=== PATIENT | female | born 1990 | race Caucasian/White ===

== ENCOUNTER 2018-08-24 10:25 | Inpatient (IN) ==
[2018-08-24] MEDS ORDERED: ceFAZolin 2 GM Premix Inj 2 GM/50 ML PIGGYBACK IV.SIG PRN (11:39)
[2018-08-24] MEDS ORDERED: Citric Acid/Sodium Citrate Liq 30 ML UDC PO SCH (11:45)
[2018-08-24 11:47] LABS: Baso # (Auto) 0.1 th/mm3 (0.0-0.2); Baso % (Auto) 0.6 % (0.0-2.0); Eos % (Auto) 0.4 % (0.0-4.0); Hematocrit 34.9 % (35.0-46.0); Hemoglobin 11.5 gm/dL (11.6-15.3); Lymph # (Auto) 2.1 th/mm3 (1.0-4.8); Lymph % (Auto) 21.8 % (9.0-44.0); Mean Corpuscular HGB Conc 33.1 % (32.0-36.0); Mean Corpuscular Hemoglobin 26.9 pg (27.0-34.0); Mean Corpuscular Volume 81.1 fL (80.0-100.0); Mean Platelet Volume 8.7 fL (7.0-11.0); Mono # (Auto) 0.4 th/mm3 (0.0-0.9); Mono % (Auto) 3.9 % (0.0-8.0); Neut # (Auto) 7.2 th/mm3 (1.8-7.7); Neut % (Auto) 73.3 % (16.0-70.0); Platelet Count 313 th/mm3 (150-450); Red Cell Distribution Width 14.6 % (11.6-17.2); White Blood Count 9.8 th/mm3 (4.0-11.0)
--- NOTE | 2018-08-24 11:51 | P.HPOB ---
History of Present Illness Service: obstetrics Primary Care Physician: Dagmar aNyak MD History of Present Illness: 28 yo here for CS at 41 weeks she has 8 cm fibroid at cervix that is obstruction pelvic outlet Weeks Gestation:: 41 Para: 0 : 1 - Inpatient Certification I certify that the inpatient services were ordered in accordance with Medicare regulations governing the order. This includes certification that hospital inpatient services are reasonable and necessary and in the case of services not specified as inpatient-only under 42 CFR 419.22(n), that they are appropriately provided as inpatient services in accordance to with the 2-midnight benchmark under 43 CFR 412.3(e) Estimated Total Length of Stay (Days): 3 Plans for Post Hospital Care: Home Review of Systems All other systems reviewed negative except as stated in [facility] - Medical / Surgical Hx Neg / Unobtainable Medical Problems Denied: Yes Surgical History: No Previous Surgery (seizure disorder on medication) - Medical History Medical History: Medical History (Last Updated 08/24/18 @ 11:47 by Tyrone Woodward MD) Epilepsy - Surgical History Surgical History: Surgical History (Last Updated 08/24/18 @ 11:47 by Tyrone Woodward MD) No history of previous surgery - Social History I have reviewed the patient's Social History: Yes - Tobacco History Second Hand Smoke Exposure: No Tobacco Use In Past 30 Days: No Smoking Status: Never smoker - Alcohol History How Often Do You Have a Drink Containing Alcohol: Never - Travel History History of Recent Travel: No Recent Travel in the [place] Within the Last 8 Weeks: No Recent Travel Out of the Country Within the Last 8 Weeks: No Medications and Allergies Active Medications: Active Medications Citric Acid/Sodium Citrate (Sodium Citrate/Citric Acid Liq) 30 ml PO PLAN EXAMINER [facility] Stop: 08/28/18 11:44 Cefazolin Sodium/Dextrose (Ancef 2 Gm Premix Inj) 2 gm in 50 mls @ 100 mls/hr IV.SIG PLAN EXAMINER PRN PRN Reason: PROCEDURE ANESTHESIA Stop: 08/25/18 11:38 Lactated Ringer's (Lr 1000 Ml Inj) 1,000 mls @ 2,000 mls/hr IV.SIG .Q30M ONE Stop: 08/24/18 12:08 Lactated Ringer's (Lr 1000 Ml Inj) 1,000 mls @ 150 mls/hr IV.CONT .Q6H40M [facility] Allergies Allergy/AdvReac Type Severity Reaction Status Date / Time No Known Allergies Allergy Uncoded 05/23/13 08:10 Exam Vital signs: Vital Signs 08/24/18 10:45 Pulse Rate 98 H Respiratory Rate 18 Blood Pressure 110/80 Intake & Output 08/23/18 08/24/18 08/24/18 18:59 06:59 18:59 Weight 95.254 kg - Constitutional no acute distress - Routine HEENT Exam Head: Present: normocephalic ENT: Present: mucous membranes moist - Routine Neck Exam Present: supple, full ROM - Routine Respiratory Exam Present: CTA bilaterally - Routine Cardiovascular Exam Present: RRR - Routine Abdominal Exam Present: soft, normoactive bowel sounds - Routine Exam Patient deferred: external exam External: Present: normal urethra appearance Groin: Present: inguinal hernia Perineum Description: Intact Comments: cervix is 1 cm but 8 cm fibroid is presenting and vertex above - Routine Skin Exam Present: intact - Routine Neurological Exam Present: alert, oriented X3 Results - Labs CBC & Chem 7: 08/24/18 10:50 Caprini VTE Risk Assessment Caprini VTE Risk Assessment: No/Low Risk (score <= 1) Caprini Risk Assessment Model: Point Value = 1 Point Value = 2 Point Value = 3 Point Value = 5 Age 41-60 Minor surgery BMI > 25 kg/m2 Swollen legs Varicose veins or History of unexplained or recurrent spontaneous Oral contraceptives or hormone replacement Sepsis (< 1 month) Serious lung disease, including pneumonia (< 1 month) Abnormal pulmonary function Acute myocardial infarction Congestive heart failure (< 1 month) History of inflammatory bowel disease Medical patient at bed rest Age 61-74 Arthroscopic surgery Major open surgery (> 45 min) Laparoscopic surgery (> 45 min) Malignancy Confined to bed (> 72 hours) Immobilizing plaster cast Central venous access Age >= 75 History of VTE Family history of VTE Factor V Leiden Prothrombin [id number] Lupus anticoagulant Anticardiolipin antibodies Elevated serum homocysteine Heparin-induced thrombocytopenia Other congenital or acquired thrombophilia Stroke (< 1 month) Elective arthroplasty Hip, pelvis, or leg fracture Acute spinal cord injury (< 1 month) Prophylaxis Regimen: Total Risk Factor Score Risk Level Prophylaxis Regimen 0-1 Low Early ambulation 2 Moderate Order ONE of the following: *Sequential Compression Device (SCD) *Heparin 5000 units SQ BID 3-4 Higher Order ONE of the following medications: *Heparin 5000 units SQ TID *Enoxaparin/Lovenox 40 mg SQ daily (WT < 150 kg, CrCl > 30 mL/min) *Enoxaparin/Lovenox 30 mg SQ daily (WT < 150 kg, CrCl > 10-29 mL/min) *Enoxaparin/Lovenox 30 mg SQ BID (WT < 150 kg, CrCl > 30 mL/min) AND/OR *Sequential Compression Device (SCD) 5 or more Highest Order ONE of the following medications: *Heparin 5000 units SQ TID (Preferred with Epidurals) *Enoxaparin/Lovenox 40 mg SQ daily (WT < 150 kg, CrCl > 30 mL/min) *Enoxaparin/Lovenox 30 mg SQ daily (WT < 150 kg, CrCl > 10-29 mL/min) *Enoxaparin/Lovenox 30 mg SQ BID (WT < 150 kg, CrCl > 30 mL/min) AND *Sequential Compression Device (SCD) Assessment and Plan - Diagnosis (1) 41 weeks gestation of Code(s): Z3A.41 - 41 weeks gestation of Status: Acute (2) Fibroid of cervix Code(s): D25.9 - Leiomyoma of uterus, unspecified Status: Acute (3) delivery due to maternal disorder Code(s): O99.89 - Other specified diseases and conditions complicating , childbirth and the puerperium Status: Acute (4) Seizure disorder Code(s): G40.909 - Epilepsy, unspecified, not intractable, without status epilepticus Status: Acute - Plan CS for obstruction fibroid
[2018-08-24 11:57] LABS: Bacteria,Urine Moderate /hpf; Bilirubin,Urine Negative (Negative); Clarity,Urine Clear (Clear); Color,Urine Yellow (Yellw/Straw); Glucose,Urine (UA) Negative (Negative); Leukocyte Esterase,Urine Moderate (Negative); Nitrite,Urine Negative (Negative); Squamous Epithelial Cell,Urine 2 /hpf (0-5)
[2018-08-24] MEDS ORDERED: Influenza (Quadrivalent) Vaccine 0.5 ML Syringe IM ONE (12:30)
[2018-08-24] MEDS ORDERED: Morphine Sulfate PF Inj 5 MG/10 ML Ampul ONE (15:35)
[2018-08-24] MEDS ORDERED: Naloxone Inj 0.4 MG/ML Vial IV.PUSH PRN (16:30)
[2018-08-24] MEDS ORDERED: Oxytocin 30 Units/500ml Premix 30 UNITS/500 ML BAG IV.SIG ONE (17:31)
[2018-08-24] MEDS ORDERED: Simethicone 80 MG Chew Tablet PO PRN (17:31)
--- NOTE | 2018-08-24 17:36 | P.OBDELI ---
Procedure Note - Pre Op Diagnosis (1) 41 weeks gestation of (2) Fibroid of cervix (3) delivery due to maternal disorder (4) Seizure disorder - Post Op Diagnosis (1) Fibroid of cervix (2) delivery due to maternal disorder (3) Seizure disorder Performed by: Tyrone Woodward MD Procedure: Primary Low Transverse Section, Other (Myomectomy) Indication for Delivery: malposition (obstructed outlet by 9 cm fibroid) Informed Consent Obtained: For anesthesia, For procedure Confirmed Correct: Patient, Procedure, Site, Time-out taken Anesthesia: Spinal Urinary Catheter: Inserted using sterile technique Sterile Preparation: Duraprep Position: Supine with wedge to left side - Operative Features Skin Incision: Pfannenstiel Uterine Incision: Low transverse w/knife / blunt ext Membranes Ruptured: Artificially Presentation: Occiput anterior Status of : Viable Placenta Delivered: Intact Medications: Antibiotics Estimated blood loss (mL): 600 Procedure Tolerated: Well Maternal Condition: Stable Baby Condition: Stable
[2018-08-24] MEDS ORDERED: Ketorolac Inj 30 MG/ML (IVP) Vial ONE (17:48)
--- NOTE | 2018-08-24 19:01 | MP ---
cc: Tyrone Woodward MD DATE OF OPERATION: 08/24/2018 PROCEDURE PERFORMED: Primary low transverse section, myomectomy. PREOPERATIVE DIAGNOSIS: The patient had 41 weeks obstructed outlet by 9 cm fibroid posteriorly at the cervix. POSTOPERATIVE DIAGNOSIS: The patient had 41 weeks obstructed outlet by 9 cm fibroid posteriorly at the cervix. SURGEON: Tyrone Woodward MD ANESTHESIA: Raza Valdez MD. Spinal anesthesia. COMPLICATIONS: None. FINDINGS: The patient had a live male infant in the OA presentation above the 9 cm fibroid that blocked the endocervical canal. She had 9 cm fibroid in the posterior wall of the uterus obstructing the cervical canal. ESTIMATED BLOOD LOSS: 600 mL. PROCEDURE IN DETAIL: After informed consent, the patient was taken to the operating room where she was placed under spinal anesthesia was placed in supine position with left lateral tilt. Abdomen, perineum and vagina were prepped and draped in normal sterile fashion. Garrett catheter was then placed to gravity. After adequate anesthesia was assured, a Pfannenstiel skin incision was carried sharply down through the skin to the fascia. The fascia was nicked in the midline. The incision was extended laterally using Conley scissors. Rectus muscle was in the midline. Peritoneum was entered bluntly with the finger. The incision was extended laterally using blunt traction. The uterus was noted to be midline. The fibroid was not in the anterior compartment. Bladder flap was created by dissecting the bladder off the lower uterine segment. A large vein was traversing transversely across the lower uterine segment. We went above that, but still within the thinned out lower uterine segment. We made our incision, we encountered a venous complex and entered the uterus with the blunt placement of a finger. Once we entered the uterus, clear fluid was noted. The incision was extended laterally using blunt traction. A hand was placed into the uterus. The infant's head was guided to the incision using fundal pressure, the 's head would not elevate secondary to the abnormal anatomy with the fibroid. Multiple attempts were unsuccessful, so vacuum was applied to the occiput portion, just gentle traction, and a single pull requiring less than 5 seconds of activation, pulling as we gave fundal pressure, the infant's head delivered. Vacuum was taken off. The infant's shoulders were delivered, and the infant started to cry on the mother's thighs. Once the baby was stimulated and dried for 45 seconds and was crying well, the cord was clamped and cut and the infant was handed to pediatrics in attendance. Cord blood was collected. Placenta was delivered manually. The uterus was exteriorized, wiped free from all remaining products of conception. Once the uterus was exteriorized, we noted this fibroid, which filled the supracervical area in the posterior wall a little left of center. About 40% of the fibroid came all the way through to the mucosal surface, so decision was made to incise through the endometrium because this was a much shallower route then posterior near the uterosacral ligament. The incision was made. The fibroid was shelled out without difficulty, controlling blood supply. Once the fibroid was completely removed, we noted a defect which was about 4 cm in width, which was from the mucosal surface all the way through to the serosa of the posterior wall of the uterus. This was oversewn internally and then the defect was closed at the mucosal surface. The os remained free from any area of surgery and was not obstructed. The upper uterus was also free. This was all down near the cervix and the lower uterine segment, but posteriorly. Once the fibroid was completely removed and hemostasis had been achieved, defect was closed. Uterine incision was closed with running locking stitch of chromic suture. A second imbricating layer for strength and hemostasis was placed of Vicryl suture. The venous complex had to be oversewn near the incision for good hemostasis. At this point, the posterior wall of the uterus was inspected. A hematoma was trying to form where the defect was right at the serosa. This was enforced with 3 [id number] sutures in the posterior wall of the uterus. Good closure was noted over that area to tamponade any hematoma trying to form and reinforce the musculature of the posterior wall of the uterus. At this point, that 4 cm defect was closed and imbricated over that area, which was trying to form a hematoma. Interceed was applied over that suture line and the uterus was placed back in the abdomen, it was noted to be hemostatic. A second piece of Interceed was applied over the uterine incision, low transverse type. Peritoneum was closed with Vicryl suture. The fascia was closed with Vicryl suture, and the skin was closed with subcuticular stitch. Each layer was noted to be hemostatic prior to closure and the patient tolerated the procedure well. There were no active bleeding at the end of the procedure. The patient did not have any heavy vaginal bleeding. The patient tolerated the procedure well. She was taken to recovery room in stable condition. Lap and instrument counts were reported as correct. A timeout had been taken prior to the surgery, which encompassed the low transverse section, but did not include the myomectomy which was performed with this 9 cm fibroid within the myometrium. The patient was aware that this fibroid was present. She was also aware that it may require removal, possibly even leading to hysterectomy if bleeding occurred. The patient understood the risks and understood during the surgery what we were doing. MD JAYNE Taylor/ben , 05:43 PM , 05:55 PM
[2018-08-24] MEDS ORDERED: Oxytocin 30 Units/500ml Premix 30 UNITS/500 ML BAG IV.SIG PRN (22:31)
[2018-08-24] MEDS: Ibuprofen 600 MG Tablet PO PRN (23:27)
[2018-08-25 06:00] LABS: Baso % (Auto) 0.1 % (0.0-2.0); Eos % (Auto) 0.1 % (0.0-4.0); Hematocrit 21.5 % (35.0-46.0); Lymph # (Auto) 1.5 th/mm3 (1.0-4.8); Lymph % (Auto) 12.4 % (9.0-44.0); Mean Corpuscular HGB Conc 32.3 % (32.0-36.0); Mean Corpuscular Hemoglobin 26.1 pg (27.0-34.0); Mean Corpuscular Volume 80.8 fL (80.0-100.0); Mean Platelet Volume 8.2 fL (7.0-11.0); Mono # (Auto) 0.6 th/mm3 (0.0-0.9); Mono % (Auto) 5.2 % (0.0-8.0); Neut # (Auto) 9.7 th/mm3 (1.8-7.7); Neut % (Auto) 82.2 % (16.0-70.0); Platelet Count 220 th/mm3 (150-450); Red Blood Count 2.66 mil/mm3 (4.00-5.30); Red Cell Distribution Width 14.7 % (11.6-17.2); White Blood Count 11.8 th/mm3 (4.0-11.0)
[2018-08-25 06:22] LABS: Hemoglobin 6.9 gm/dL (11.6-15.3)
[2018-08-25] MEDS: Ibuprofen 600 MG Tablet PO PRN ×3 (07:51→21:43)
--- NOTE | 2018-08-25 10:26 | P.PNOB ---
Subjective Post day: 1 Interval history: 28 yo patient here with CS and myomectomy, She is tired and sleeping. Initially had lightheadedness when she got up but is doing better after fluid bolus. Objective Vital Signs/I&O: Vital Signs 08/24/18 10:45 08/24/18 17:32 08/24/18 17:44 Temperature 98.4 F Pulse Rate 98 H 92 H 76 Respiratory Rate 18 18 18 Blood Pressure 110/80 115/56 L 08/24/18 17:45 08/24/18 18:02 08/24/18 18:12 Temperature 98.1 F Pulse Rate 74 Respiratory Rate 18 Blood Pressure 141/63 H 116/63 08/24/18 18:16 08/24/18 20:30 08/25/18 00:00 Temperature 98.3 F 98.3 F Pulse Rate 89 68 72 Respiratory Rate 18 18 18 Blood Pressure 122/58 L 119/62 102/54 L 08/25/18 04:30 08/25/18 08:12 Temperature 98.3 F 98.0 F Pulse Rate 77 79 Respiratory Rate 18 18 Blood Pressure 102/60 106/60 Intake & Output 08/24/18 08/25/18 08/25/18 18:59 06:59 18:59 Weight 94.347 kg Other: Weight On Admission 94.347 kg Result Diagrams: 08/25/18 05:39 Objective Remarks: GENERAL: Well-nourished, well-developed patient. ABDOMEN/GI: Abdomen soft, non-tender. Fundus: Firm, non-tender at umbilicus. GENITOURINARY: Light to moderate bleeding. EXTREMITIES: No cyanosis or edema, non-tender, without signs of DVT. Medications and IVs: Active Medications Diphenhydramine HCl (Benadryl) 50 mg PO Q6H PRN PRN Reason: MILD TO MODERATE ITCHING Stop: 08/25/18 16:29 Diphenhydramine HCl (Benadryl Inj) 25 mg IV.PUSH Q6H PRN PRN Reason: MILD TO MODERATE ITCHING Stop: 08/25/18 16:29 Diphtheria/Pertussis/Tetanus Vacc (Boostrix Vaccine Inj) 0.5 ml IM .ONCE ONE Stop: 08/25/18 16:01 Lactated Ringer's (Lr 1000 Ml Inj) 1,000 mls @ 100 mls/hr IV.CONT .Q10H ANTELMO Stop: 08/25/18 18:30 Last Admin: 08/24/18 22:00 Dose: 100 mls/hr Oxytocin (Pitocin 30 Units/Ns 500 Ml Premix) 30 units in 500 mls @ 100 mls/hr IV.SIG PRN PRN PRN Reason: Heavy bleeding Stop: 08/25/18 22:30 Ibuprofen (Motrin) 600 mg PO Q6HR PRN PRN Reason: cramping Last Admin: 08/25/18 07:51 Dose: 600 mg Ketorolac Tromethamine (Toradol Inj) 30 mg IM Q6H PRN PRN Reason: SEE LABEL COMMENTS Last Admin: 08/24/18 17:51 Dose: 30 mg Measles/Mumps/Rubella Vaccine Live (M-M-R Ii Vaccine Inj) 0.5 ml SQ .ONCE ONE Stop: 08/25/18 16:01 Miscellaneous Information ([facility] [place] [facility] Information) 1 each OTHER UNSCH PRN PRN Reason: SEE LABEL COMMENTS Stop: 08/25/18 16:29 Miscellaneous Information ([facility] [place] [facility] Information) 1 each OTHER UNSCH PRN PRN Reason: SEE LABEL COMMENTS Stop: 08/25/18 16:29 Naloxone HCl (Narcan Inj) 0.4 mg IV.PUSH UNSCH PRN PRN Reason: SEE LABEL COMMENTS Stop: 08/25/18 16:29 Ondansetron HCl (Zofran Inj) 4 mg IV.PUSH Q6H PRN PRN Reason: NAUSEA OR VOMITING Oxycodone/Acetaminophen (Percocet 5/325 Mg) 1 tab PO Q4H PRN PRN Reason: PAIN SCALE 3 TO 5 Last Admin: 08/25/18 07:52 Dose: 1 tab Oxycodone/Acetaminophen (Percocet 5/325 Mg) 2 tab PO Q4H PRN PRN Reason: PAIN SCALE 6 TO 10 Simethicone (Mylicon Chew) 80 mg PO QID PRN PRN Reason: FLATULENCE Sodium Chloride (Ns Flush) 2 ml IV.FLUSH BID ANTELMO Last Admin: 08/25/18 01:57 Dose: Not Given Sodium Chloride (Ns Flush) 2 ml IV.FLUSH PRN PRN PRN Reason: FLUSH AFTER USING IV ACCESS Assessment and Plan - Diagnosis (1) 41 weeks gestation of Code(s): Z3A.41 - 41 weeks gestation of Status: Acute (2) Fibroid of cervix Code(s): D25.9 - Leiomyoma of uterus, unspecified Status: Acute (3) delivery due to maternal disorder Code(s): O99.89 - Other specified diseases and conditions complicating , childbirth and the puerperium Status: Acute (4) Seizure disorder Code(s): G40.909 - Epilepsy, unspecified, not intractable, without status epilepticus Status: Acute - Plan CS for obstruction fibroid Discharge Planning: ambulate and recheck Hgb if symptomatic may need blood transfusion
[2018-08-25] MEDS ORDERED: Measles/Mumps/Rubella Vaccine Inj 0.5 ML Vial SQ ONE (16:00)
[2018-08-25] MEDS ORDERED: Diphtheria/Tetanus/Pertussis Vaccine Inj 0.5 ML Syringe IM ONE (16:00)
--- NOTE | 2018-08-25 23:45 | P.OBDELI ---
Weeks Gestation: 41 Patient Started Active Labor: No Medical Induction of Labor: Yes Medical Induction Start Date: 08/25/18 Artificial Rupture of Membrane: Yes Anesthesia: Epidural Episiotomy: none Vaginal Delivery: Normal Presentation: Occiput anterior Nuchal Cord: None Delayed Cord Clamping (45 sec): Yes Placenta: 3 vessel cord Laceration: Perineal, 2 deg Repair: Chromic running Infant: Female, Single
[2018-08-25] MEDS ORDERED: Bisacodyl 10 MG Supp RECTAL PRN (23:47)
[2018-08-25] MEDS ORDERED: Naloxone Inj 0.4 MG/ML Vial IV.PUSH PRN (23:47)
[2018-08-25] MEDS ORDERED: Zolpidem Tartrate 5 MG Tablet PO PRN (23:47)
[2018-08-25] MEDS ORDERED: Witch Hazel 50%/Glyderin 12.5% 40 Pad Jar RECTAL PRN (23:47)
[2018-08-25] MEDS ORDERED: Acetaminophen 325 MG Tablet PO PRN (23:47)
[2018-08-25] MEDS ORDERED: Benzocaine 20% Top Spray 60 ML Can TOPICAL PRN (23:47)
[2018-08-25] MEDS ORDERED: Oxytocin 30 Units/500ml Premix 30 UNITS/500 ML BAG IV.CONT PRN (23:47)
[2018-08-26 05:53] LABS: Mean Corpuscular HGB Conc 33.1 % (32.0-36.0); Mean Corpuscular Hemoglobin 26.7 pg (27.0-34.0); Mean Corpuscular Volume 80.6 fL (80.0-100.0); Mean Platelet Volume 8.1 fL (7.0-11.0); Platelet Count 224 th/mm3 (150-450); Red Blood Count 2.56 mil/mm3 (4.00-5.30); Red Cell Distribution Width 14.6 % (11.6-17.2); White Blood Count 9.9 th/mm3 (4.0-11.0)
[2018-08-26 06:00] LABS: Hematocrit 20.6 % (35.0-46.0); Hemoglobin 6.8 gm/dL (11.6-15.3)
[2018-08-26] MEDS: Senna/Docusate Sodium 8.6/50 MG Tablet PO SCH ×2 (09:50→20:56)
--- NOTE | 2018-08-26 10:23 | P.PNOB ---
Subjective Post day: 2 Interval history: doing well Hgb stable, ambulating and breast feeding Objective Vital Signs/I&O: Vital Signs 08/25/18 12:30 08/25/18 20:00 08/26/18 07:45 Temperature 98.1 F 98.3 F 97.9 F Pulse Rate 88 71 97 H Respiratory Rate 18 18 16 Blood Pressure 98/58 L 113/60 92/57 L Result Diagrams: 08/26/18 05:22 Objective Remarks: GENERAL: Well-nourished, well-developed patient. ABDOMEN/GI: Abdomen soft, non-tender. Fundus: Firm, non-tender at umbilicus. GENITOURINARY: Light to moderate bleeding. EXTREMITIES: No cyanosis or edema, non-tender, without signs of DVT. Medications and IVs: Active Medications Acetaminophen (Tylenol) 650 mg PO Q4H PRN PRN Reason: PAIN SCALE 1 TO 2 Al Hydroxide/Mg Hydroxide (Milk Of Magnesia Liq) 30 ml PO Q12H PRN PRN Reason: Mild Constipation Benzocaine (Americaine 20% Top [place]) 1 spray TOPICAL Q4H PRN PRN Reason: For Perineum Discomfort Bisacodyl (Dulcolax Supp) 10 mg RECTAL DAILY PRN PRN Reason: SEVERE CONSITIPATION Oxytocin (Pitocin 30 Units/Ns 500 Ml Premix) 30 units in 500 mls @ 100 mls/hr IV.CONT UNSCH PRN PRN Reason: Heavy bleeding Ibuprofen (Motrin) 800 mg PO Q8H PRN PRN Reason: For Cramping Last Admin: 08/26/18 05:29 Dose: 800 mg Ketorolac Tromethamine (Toradol Inj) 30 mg IM Q6H PRN PRN Reason: SEE LABEL COMMENTS Last Admin: 08/24/18 17:51 Dose: 30 mg Lactulose (Lactulose Liq) 30 ml PO DAILY PRN PRN Reason: SEVERE CONSITIPATION Levetiracetam (Keppra) 750 mg PO BID ANTELMO Naloxone HCl (Narcan Inj) 0.1 mg IV.PUSH Q2M PRN PRN Reason: for opiate reversal Ondansetron HCl (Zofran Odt) 4 mg PO Q6H PRN PRN Reason: NAUSEA OR VOMITING Last Admin: 08/26/18 09:53 Dose: 4 mg Oxycodone/Acetaminophen (Percocet 5/325 Mg) 1 tab PO Q4H PRN PRN Reason: PAIN SCALE 3 TO 5 Last Admin: 08/26/18 07:49 Dose: 1 tab Oxycodone/Acetaminophen (Percocet 5/325 Mg) 2 tab PO Q4H PRN PRN Reason: PAIN SCALE 6 TO 10 Last Admin: 08/26/18 01:37 Dose: 2 tab Senna/Docusate Sodium (Shani-Colace) 1 tab PO BID ANTELMO Sennosides (Senokot) 17.2 mg PO Q12H PRN PRN Reason: Moderate Constipation Simethicone (Mylicon Chew) 80 mg PO QID PRN PRN Reason: FLATULENCE Last Admin: 08/26/18 07:49 Dose: 80 mg Sodium Chloride (Ns Flush) 2 ml IV.FLUSH BID ANTELMO Sodium Chloride (Ns Flush) 2 ml IV.FLUSH PRN PRN PRN Reason: FLUSH AFTER USING IV ACCESS Witch An/Glycerin (Tucks Pads) 1 applicatio RECTAL QID PRN PRN Reason: HEMORRHOIDS Zolpidem Tartrate (Ambien) 5 mg PO HS PRN PRN Reason: SLEEP Assessment and Plan - Diagnosis (1) 41 weeks gestation of Code(s): Z3A.41 - 41 weeks gestation of Status: Acute (2) Fibroid of cervix Code(s): D25.9 - Leiomyoma of uterus, unspecified Status: Acute (3) delivery due to maternal disorder Code(s): O99.89 - Other specified diseases and conditions complicating , childbirth and the puerperium Status: Acute (4) Seizure disorder Code(s): G40.909 - Epilepsy, unspecified, not intractable, without status epilepticus Status: Acute - Plan CS for obstruction fibroid Discharge Planning: ambulate and recheck Hgb if symptomatic may need blood transfusion
[2018-08-26] MEDS: levETIRAcetam 250 MG Tablet PO SCH ×2 (11:48→20:56)
--- NOTE | 2018-08-27 08:23 | P.DS ---
Date of admission: 08/24/18 10:25 Primary care physician: Dagmar Nayak MD Brief History from admission: 28 yo here for CS at 41 weeks she has 8 cm fibroid at cervix that is obstruction pelvic outlet DS: Diagnosis - Discharge Diagnosis (1) 41 weeks gestation of Status: Acute (2) Fibroid of cervix Status: Acute (3) delivery due to maternal disorder Status: Acute (4) Seizure disorder Status: Acute DS: Medications - Discharge Medications Prescriptions: oxycodone-acetaminophen 2 tab PO Q4H PRN 3 Days #20 tab PRN Reason: Pain Scale 6 To 10 DS: Summary Hospital Course: doing well CS and myomectomy. Doing well on percocet and motrin - Time Spent with Patient Total time spent providing and/or coordinating discharge services: Less than 30 minutes Exam Vital signs: Vital Signs 08/26/18 08:49 08/26/18 19:50 Temperature 98.4 F Pulse Rate 101 H Respiratory Rate 16 16 Blood Pressure 111/67 - Constitutional no acute distress - Routine Respiratory Exam Present: CTA bilaterally - Routine Cardiovascular Exam Present: RRR - Routine Abdominal Exam Present: soft, normoactive bowel sounds (incision clean and dry) Results Procedures completed during hospitalization: LTCS and myomectomy Discharge Plan - Discharge Disposition Patient Disposition: 01 Discharge Home - Discharge Condition Condition: Good - Discharge Order Discharge Orders: Discharge Order (Routine); Ordered 08/27/18 Ordered By: Tyrone Woodward - Physicians Team Primary Care Provider: Dagmar Nayak Attending Provider: Tyrone Woodward - Rxs /Orders / Referrals /Forms Prescriptions: New oxycodone-acetaminophen 5-325 mg Tablet 2 tab PO Q4H PRN (Reason: Pain Scale 6 To 10) 3 Days Qty: 20 RF: 0 Continue folic acid 1 mg Tablet 2 mg PO DAILY levetiracetam [Keppra] 750 mg Tablet 750 mg PO BID PNV [id number]-ferrous fumarate-FA [] 28 mg iron- 800 mcg Tablet 1 tab PO DAILY Referrals: Tyorne Woodward MD [Physician] - See Instructions Dagmar Nayak MD [Primary Care Provider] - See Instructions - Discharge Instructions Patient Printed Instructions: (DC) - Post Discharge Care Plan Care Plan Goals: Discharge Care Plan Goals After Section Congratulations on your new baby! We want your recovery to be hill and trouble free. You had a section, or . During the , your baby was delivered through an incision in your abdomen and uterus. Full recovery after a can take time. Its important to take care of yourself for your own sake and because your new baby needs you. Here are some guidelines to follow at home. Incision care: Here's how to take care of your incision: * Shower as needed. Pat your incision dry. * Watch your incision for signs of infection, like more redness or drainage. * Hold a pillow against the incision when you laugh or cough and when you get up from a lying or sitting position. * Remember, it can take as long as 6 weeks for your incision to heal. Diet and Activity: Here are some suggestions: * Dont try to take care of anyone other than your baby and yourself. * Remember, the more active you are, the more likely you are to have an increase in your bleeding. * Get lots of rest. Take naps when the is napping. * Increase your activities bit by bit. * Plan your activities so that you dont have to go up or down stairs more than needed. * Do postsurgical deep breathing and coughing exercises. Follow your physician' s instructions. * Dont lift anything heavier than your baby until your physician tells you it s OK. * Dont drive when you are on pain medications. * Dont have sexual intercourse until after youve had a checkup with your physician and you have decided on a control method. * Allow others to do things for you. Don't hesitate to ask for help. If you are : * Ask before you take any medicine. * If you leak milk, it will help to nurse right before the activity. * Talk to your healthcare provider about alcohol, if you choose to drink. * When youre sick, check with your physician if the medications would impact the breast feeding * Ask your physician before taking any prescription or over-the- counter medicines, herbs, or supplements. * Ask your physician what to use for prevention while you are nursing. Balancing the Blues: Recognize your need to talk, to feel protected, to have private time. Allow yourself to cry, to sit, to think. Ask for help when you need it, and accept help when its offered. Knowing your needs is not a weakness. Share your thoughts with your partner. Or bean picker the phone and call a friend, your mother , a sister, or an aunt. Rest, eat right, and get some light exercise. The mind feels best when the body feels good. When to Call your Physician: * Fever of 100.5F or higher. * Redness, pain, or drainage at your incision site * Bleeding that requires a new sanitary pad every hour * Severe pain in the abdomen * Pain or urgency with urination * Foul odor from vaginal discharge * Trouble urinating or emptying your bladder * No bowel movement within 1 week after the of your baby * Swollen, red, painful area in the calf/leg * Appearance of rash or hives * Sore, red, painful area on the breasts that may come with flu-like symptoms * Feelings of anxiety, panic, and/or depression Signs of Depression include: You dont want to be with the baby. Your symptoms are not getting better, and youre getting more upset. You have no interest in eating or are not able to sleep. You think you may harm yourself or the baby. The Depression After Delivery hotline (721-723-0853) may also be helpful. Follow-Up: * Keep your appointments as scheduled. * If your symptoms worsen call your OB Physician, or go to an Urgent Care Center or Emergency Room. * Smoking is Dangerous to your health. Avoid second hand smoke. * Call the 24-hour crisis hotline for domestic abuse at Call 911: Call 911 right away if you have: * Sudden onset of chest pain that is not relieved by medications. * Shortness of breath * Severe Depression /Thoughts of harm to self and others
[2018-08-27] MEDS: levETIRAcetam 250 MG Tablet PO SCH (09:51)
[2018-08-27] MEDS: Senna/Docusate Sodium 8.6/50 MG Tablet PO SCH (09:51)
[2018-08-27] MEDS ORDERED: Influenza (Quadrivalent) Vaccine 0.5 ML Syringe IM ONE (13:00)
[2018-08-27] MEDS ORDERED: Diphtheria/Tetanus/Pertussis Vaccine Inj 0.5 ML Syringe IM ONE (13:45)
== END 2018-08-27 14:41 | disposition home or self-care (01) | DRG 787 ==
LOC: H2E 10:25 → H1EA 18:30
PROVIDERS: ADMIT Obstetrics & Gynecology; ATTEND Obstetrics & Gynecology
CPT/HCPCS: 59025; 81001; 85025; 85027; 86850; 86900; 86901; 87086; 88305; 90471; 90658; 90686; 90715; C1765; G0008; J0131; J1885; J2274; J2590; J7120; Q2038